=== PATIENT | male | born 1995 | race Hispanic/Latino ===

== ENCOUNTER 2020-11-20 12:21 | Emergency (ER) | payer OTHER ==
[~2020-11-20] VITALS: Ht 180.3 cm; Wt 74.8 kg
[2020-11-20] MEDS ORDERED: ONDANSETRON HCL INJ 2MG/ML 2ML 2 MG/ML VIAL IV STA (12:25)
[2020-11-20] MEDS ORDERED: SODIUM CHLORIDE 0.9% 1000ML 1,000 ML IV SCH (12:30)
[2020-11-20] MEDS ORDERED: ONDANSETRON ODT4 MG PO (14:30)
[2020-11-20] MEDS ORDERED: PANTOPRAZOLE SO40 MG PO (14:30)
== END 2020-11-20 15:15 | disposition home or self-care (01) ==
LOC: FSED 12:31
DX: R10.13 Epigastric pain (principal); R11.0 Nausea
CPT/HCPCS: 74176; 80053; 82553; 84484; 85025; 99284